=== PATIENT | male | born 1960 | race Caucasian/White ===

== ENCOUNTER → 2017-01-04 08:15 | Outpatient (CLI) | payer MEDICAID ==
[~2017-01-04 08:15] MED LIST: HYDROCODONE-APA1 TAB PO; TENORMIN50 MG PO; XANAX0.5 MG PO; ZYLOPRIM100 MG PO
[2017-02-20 06:18] VITALS: BMI 47.6
== END | disposition home or self-care (01) ==
LOC: D.NM 08:15
DX: R10.9 Unspecified abdominal pain (principal)

== ENCOUNTER → 2017-01-23 11:52 | Outpatient (CLI) | payer MEDICAID ==
[2017-01-23 12:36] LABS: BASOPHILS 0.5 % (0-2); EOSINOPHILS 3.6 % (0-7); HEMATOCRIT 42.8 % (42.0-54.0); HEMOGLOBIN 14.5 g/dL (13.5-17.5); IMMATURE GRANULOCYTES 0.2 % (0-5); LYMPHOCYTES 20.9 % (15-50); MCH 34.4 pg (26.0-34.0); MCHC 33.9 g/dL (31.0-37.0); MCV 101.7 fL (80.0-100.0); MONOCYTES 9.9 % (2-11); NEUTROPHILS 64.9 % (40-80); PLATELET COUNT 150 10x3/uL (130-400); RBC 4.21 10x6/uL (4.20-6.10); RDW 12.6 % (11.5-14.5); WBC 6.2 10x3/uL (4.8-10.8)
[2017-01-23 12:58] LABS: APTT 34.5 SECONDS (22.8-39.4); INR 1.22 (0.85-1.17); PROTIME 14.9 SECONDS (11.6-15.0)
[2017-01-23 13:06] LABS: % SATURATION 40 % (15-55); IRON 115 ug/dl (35-150); TOTAL IRON BIND CAPACITY 283 ug/dl (260-445); UNSAT IRON BIND CAPACITY 168 ug/dl (150-375)
[2017-01-23 13:22] LABS: ALBUMIN 3.5 g/dL (3.4-5.0); ALKALINE PHOSPHATASE 89 U/L (46-116); ALT (SGPT) 158 U/L (10-68); CALC OSMOLALITY 267 mosm/kg (275-300); CALCIUM 8.3 mg/dL (8.5-10.1); CARBON DIOXIDE 24.7 mmol/L (21.0-32.0); CHLORIDE - SERUM 101 mmol/L (98-107); CHOL - HDL RATIO 8.1 ratio (2.3-4.9); CHOLESTEROL, TOTAL 203 mg/dL (0-200); FERRITIN 974 ng/mL (3-244); GAMMA GT 243 U/L (5-85); GLUCOSE 101 mg/dL (74-106); HDL CHOLESTEROL 25 mg/dL (32-96); LDL CHOLESTEROL 146 mg/dL (0-100); LDL-HDL RATIO 5.8 ratio (1.5-3.5); POTASSIUM - SERUM 4.5 mmol/L (3.5-5.1); PROTEIN - SERUM 7.4 g/dL (6.4-8.2); SODIUM 135 mmol/L (136-145); TRIGLYCERIDE 161 mg/dL (30-200); UREA NITROGEN 8 mg/dL (7-18); eGFR NON AFRICAN AMERICAN 82 mL/min (90-120)
[2017-01-24 09:16] LABS: FOLATE (FOLIC ACID) - SERUM 11.7 ng/mL (>3.0); HAPTOGLOBIN 72 mg/dL (34-200)
[2017-01-24 11:20] LABS: ANA REFLEX - ANTICHROMATIN ABS <0.2 AI (0.0-0.9); ANA REFLEX - CENTROMERE B ABS <0.2 AI (0.0-0.9); ANA REFLEX - DBL STRANDED DNA <1 IU/mL (0-9); ANA REFLEX - DIRECT Positive (Negative); ANA REFLEX - JO-1 AB <0.2 AI (0.0-0.9); ANA REFLEX - RNP ANTIBODIES 3.6 AI (0.0-0.9); ANA REFLEX - SCL-70 <0.2 AI (0.0-0.9); ANA REFLEX - SJOGRENS AB SSA <0.2 AI (0.0-0.9); ANA REFLEX - SJOGRENS AB SSB <0.2 AI (0.0-0.9); ANA REFLEX - SMITH AB <0.2 AI (0.0-0.9)
[2017-01-24 13:14] LABS: HEPATITIS C ANTIBODY <0.1 (0.0-0.9)
[2017-01-25 14:22] LABS: MITOCHONDRIAL ANTIBODY 6.7 Units (0.0-20.0); SMOOTH MUSCLE ABS (ACTIN) 18 Units (0-19)
[2017-02-20 06:18] VITALS: BMI 47.6
== END | disposition home or self-care (01) ==
LOC: D.LAB 01-22 10:15
PROVIDERS: Internal Medicine Gastroenterology
DX: R79.89 Other specified abnormal findings of blood chemistry (principal); R16.1 Splenomegaly, not elsewhere classified; K76.0 Fatty (change of) liver, not elsewhere classified

== ENCOUNTER 2017-01-29 10:43 | Outpatient (CLI) | payer MEDICAID ==
[~2017-01-29] VITALS: Ht 170.2 cm; Wt 140.0 kg
--- NOTE | ~2017-01-29 | HEMODYNAMI ---
PATIENT:SOL DOSHI MEDICAL RECORD: [id number] : 58 LOCATION:[facility] ADMISSION DATE: 01/29/17 Generatedon:01/29/201713:22 Patient name: SOL DOSHI Patient #: [id number] : 1960 Date of study: 01/29/2017 Page: Of Hemodynamic Procedure Report Patient Data Patient Demographics Procedure consent was obtained First Name: SOL Gender: Male Last Name: GLENDA : 1960 Middle Initial: GWEN Age: 56 year(s) Patient #: [id number] Race: Unknown SSN: [id number] Additional ID: [id number] Contact details [address]: [address] [place] [address] State: [place] City: [place] Zip code: [address] Past Medical History Allergies Allergen Reaction Date Comments Reported Other allergy 01/29/2017 NSAIDS, ASA Admission Admission Data Admission Date: 01/29/2017 Admission Time: 10:43 Height (in.): 68 BSA: 2.44 (m2) Height (cm.): 172.72 BMI: 45.92 (kg/m2) Weight (lbs.): 302 Weight (kg.): 136.98 Lab Results Lab Result Date: 01/29/2017 Lab Result Time: 0:00 Biochemistry Name Units Result Min Max BUN mg/dl 11 --(-*--)-- 7 18 Creatinine mg/dl 1 --(--*-)-- 0.6 1.3 CBC Name Units Result Min Max Hemoglobin g/dl 15.3 --(-*--)-- 13.5 17.5 Procedure Procedure Types Cath Procedure Diagnostic Procedure Miscellaneous Procedures Moderate Sedation up to 15 minutes Peripheral Cath Diagnostic Procedure Cath Peripheral Xxbth-Enpfatx-Pgy-Off Procedure Description Procedure Date Procedure Date: 01/29/2017 Procedure Start Time: 13:06 Procedure End Time: 13:21 Procedure Staff Name Function Wing Vitale MD Performing Physician Angela Sena RT Monitor Francoise Hoffman RT Scrub Inna Chery RN Nurse Procedure Data Cath Procedure Fluoroscopy Diagnostic fluoroscopy Total fluoroscopy Time: 1.9 time: 1.9 min min Diagnostic fluoroscopy Total fluoroscopy dose: 590 dose: 590 mGy mGy Contrast Material Contrast Material Type Amount (ml) Isovue 300 96 Entry Location Entry Primary Successful Side Size Upsize Upsize Entry Closure Succes sful Closure Location (Fr) 1 (Fr) 2 (Fr) Remarks Device Remarks Femoral Right 5 Fr Exoseal artery Estimated blood loss: 10 ml Procedure Complications No complications Procedure Medications Medication Administration Route Dosage 0.9% NaCl I.V. 100 ml/hr Lidocaine 2% added to field 20 Heparin Flush Bag added to field 2 bags (1000units/500ml NS) Oxygen NC 2 l/min Fentanyl I.V. 50 mcg Versed I.V. 2 mg Fentanyl I.V. 50 mcg Versed I.V. 1 mg Versed I.V. 1 mg Fentanyl I.V. 50 mcg Fentanyl I.V. 50 mcg Versed I.V. 1 mg Hemodynamics Rest BSA: 2.44 (m2) O2 Consumption: Estimated: 331.84 (ml/min) O2 Consumption indexed : Estimated:136 (ml/min/m) Pre Cath Intra NCS Post Cath Vital Signs Time Heart Resp SPO2 etCO2 NIBP (mmHg) Rhythm Pain Sedation Rate (ipm) (%) (mmHg) Status Level (bpm) 12:49:07 63 24 98 0 174/93(137) NSR 0 (11) 10(A) , No pain 12:53:32 64 29 99 18.7 172/93(147) NSR 0 (11) 10(A) , No pain 12:57:52 62 17 99 22.4 158/90(130) NSR 0 (11) 10(A) , No pain 13:02:10 61 21 97 25.4 147/83(115) NSR 0 (11) 10(A) , No pain 13:06:28 62 16 98 20.2 140/86(124) NSR 0 (11) 9(A) , No pain 13:10:42 63 19 96 35.2 136/84(111) NSR 0 (11) 9(A) , No pain 13:15:02 63 16 97 0 148/81(125) NSR 0 (11) 10(A) , No pain 13:19:18 66 11 97 0 140/88(119) NSR 0 (11) 10(A) , No pain Medications Time Medication Route Dose Verified Delivered Reason Notes E ffectiveness by by 12:48:38 0.9% NaCl I.V. 100ml/hr Wing Inna used for Iam Chery RN procedure 12:49:01 Lidocaine 2% added 20ml Wing Wing for local to vial Iam Vitale MD anesthetic field 12:49:14 Heparin Flush added 2 bags Wing Wing used for Bag to Iam Vitale MD procedure (1000units/500ml field NS) 12:49:29 Oxygen NC 2 l/min Wing Inna Per Iam Chery RN physician 13:03:05 Fentanyl I.V. 50 mcg Wing Inna for Iam Chery RN sedation 13:03:18 Versed I.V. 2 mg Wing Inna for Iam Chery RN sedation 13:05:22 Fentanyl I.V. 50 mcg Wing Inna for Iam Chery RN sedation 13:05:36 Versed I.V. 1 mg Iwng Inna for Iam Chery RN sedation 13:09:26 Versed I.V. 1 mg Wing Inna for Iam Chery RN sedation 13:09:34 Fentanyl I.V. 50 mcg Wing Inna for Iam Chery RN sedation 13:11:58 Fentanyl I.V. 50 mcg Wing Inna for Iam Chery RN sedation 13:15:28 Versed I.V. 1 mg Wing Inna for Iam Chery RN sedation Procedure Log Time Note 12:29:52 Patient Height : 68 inches 12:29:59 Patient Weight : 302 lbs 12:32:38 Diagnostic Cath status Elective 12:32:41 Francoise Hoffman RT(R) sent for patient. Start room use. 12:32:43 Time tracking: Regular hours 12:32:48 Plan of Care:Hemodynamics will remain stable., Cardiac rhythm will remain stable., Comfort level will be maintained., Respiratory function will remain adequate., Patient/ family verbilizes understanding of procedure., Procedure tolerated without complication., Recovers from procedure without complications.. 12:44:27 Patient received from Pre/Post Procedure Room to [facility] 2 Alert and oriented. Nilsonred to table in Supine position. 12:44:28 Warm blankets applied, and dayana hugger turned on for patient comfort. 12:44:29 Correct patient and procedure confirmed by team. 12:44:30 Signed procedure consent form obtained from patient. 12:44:32 ECG and BP/O2 sat monitors applied to patient. 12:44:50 H&P Date Dictated: 01/23/2017 Within 30 days and on chart.. 12:44:52 Pre-procedure instructions explained to patient. 12:44:53 Family in waiting room. 12:44:56 Patient NPO since Midnight. 12:45:30 Patient allergic to Other allergyNSAIDS, ASA 12:45:34 Is the patient allergic to Iodine/contrast media? No. 12:45:42 Is patient on blood thinner?No 12:47:48 Vital chart was started 12:48:38 0.9% NaCl 100ml/hr I.V. was administered by Inna Chery RN; used for procedure; 12:49:01 Lidocaine 2% 20ml vial added to field was administered by Wing Vitale MD; for local anesthetic; 12:49:14 Heparin Flush Bag (1000units/500ml NS) 2 bags added to field was administered by Wing Vitale MD; used for procedure; 12:49:29 Oxygen 2 l/min NC was administered by Inna Chery RN; Per physician; 12:57:44 Patient diabetic? No. 12:57:51 Snore? Yes 12:57:53 Sleep apnea? Yes 12:58:00 Patient pain scale 0/10 ?. 12:58:14 IV patent on arrival in left forearm with 0.9% NaCl at O. 12:58:51 Lab Result : BUN 11 mg/dl 12:58:51 Lab Result : Hemoglobin 15.3 g/dl 12:58:51 Lab Result : Creatinine 1 mg/dl 12:58:56 Lab results completed and on chart. 12:59:01 Bilateral groins area was prepped with chlora-prep and draped in sterile fashion 12:59:02 Alarms reviewed by R. N. 12:59:03 Sharps counted by scrub and verified by R.N. 12:59:05 Physician paged 13:01:47 Physician arrived 13:01:48 --------ALL STOP TIME OUT------ 13:01:49 Final Timeout: patient, procedure, and site verified with staff and physician. All members of the team are in agreement. 13:01:51 Bilateral groins site verified by team. 13:01:56 Sedation plan: IV Moderate Sedation Medication:Versed, Fentanyl 13:03:05 Fentanyl 50 mcg I.V. was administered by Inna Chery RN; for sedation; 13:03:18 Versed 2 mg I.V. was administered by Inna Chery RN; for sedation; 13:04:28 Use device set Femoral Dx 13:04:29 ACIST Syringe (12138) opened to sterile field. 13:04:29 Bag Decanter (2002S) opened to sterile field. 13:04:30 Medline Cath Pack ([id number]) opened to sterile field. 13:04:30 SHEATH 5FR [place] (OXD135) opened to sterile field. 13:04:32 DIAGNOSTIC WIRE .035 260cm J wire (593504) opened to sterile field. 13:04:33 ACIST Hand Control (87120) opened to sterile field. 13:04:33 ACIST Manifold (74464) opened to sterile field. 13:04:34 DIAGNOSTIC Multipack 5Fr catheter set (ZP7279) opened to sterile field. 13:04:36 Tegaderm 4 x 4 (1626W) opened to sterile field. 13:04:37 PERCUTANEOUS ENTRY 19GA needle opened to sterile field. 13:04:59 Procedure started. 13:04:59 Full Disclosure recording started 13:05:22 Fentanyl 50 mcg I.V. was administered by Inna Chery RN; for sedation; 13:05:36 Versed 1 mg I.V. was administered by Inna Chery RN; for sedation; 13:06:04 Local anesthetic to right femoral artery with Lidocaine 2% by Wing Vitale MD.INITIAL ACCESS ONLY 13:07:11 A 5 Fr sheath was inserted into the Right Femoral artery 13:09:26 Versed 1 mg I.V. was administered by Inna Chery RN; for sedation; 13:09:34 Fentanyl 50 mcg I.V. was administered by Inna Chery RN; for sedation; 13:10:47 J wire advanced. 13:11:58 Fentanyl 50 mcg I.V. was administered by Inna Chery RN; for sedation; 13:12:23 UF catheter was inserted through the sheath 13:12:26 Abdominal angiogram w/ runoff was performed. 13:12:33 Left leg runoff performed. 13:12:35 Right leg runoff performed. 13:15:28 Versed 1 mg I.V. was administered by Inna Chery RN; for sedation; 13:18:50 Sheath removed intact; hemostasis achieved with Exoseal to the Right Femoral artery. 13:19:03 EXOSEAL 5Fr (EX500) opened to sterile field. 13:19:34 Procedure ended.(Physican Out) 13:19:47 Fluoroscopy time 01.90 minutes. 13:19:51 Fluoroscopy dose: 590 mGy 13:19:51 Flurop Dose total: 590 13:20:07 Contrast amount:Isovue 300 96ml. 13:20:10 Sharps counted by scrub and verified by R.N. 13:20:11 Insertion/operative site no bleeding no hematoma. 13:20:15 Post-op/insertion site Right Femoral artery dressed using a 4 x 4 and Tegaderm. 13:20:17 Post Procedure Pulses reassessed and unchanged 13:20:24 Post-procedure physical assessment completed. ASA score P 2 - A patient with mild systemic disease as per Wing Vitale MD. 13:20:28 Post procedure rhythm: unchanged. 13:20:30 Estimated blood loss: 10 ml 13:20:32 Post procedure instruction explained to patient.Patient verbalizes understanding. 13:20:48 Procedure and supply charges have been captured, reviewed, submitted and are correct. 13:21:40 Procedure Complication : No complications 13:21:43 Vital chart was stopped 13:21:43 See physician's report for complete and final results. 13:21:45 Report given to Pre/Post Procedure Room. 13:21:50 Patient transfered to Pre/Post Procedure Room with Stretcher. 13:21:53 Procedure ended. 13:21:53 Full Disclosure recording stopped 13:21:56 End room use (Document Last) Device Usage Item Name Manufacture Quantity Catalog Hospital Part Current Minimal Lot# / Number Charge Number Stock Stock Serial# Code ACIST Acist 1 29784 278444 243676 100617 20 [employer] (30691) Academic Earth Bag Decanter Microtek 1 2001 077728 73037 809641 5 (2002S) Medical Inc. Medline Cath Cardinal 1 [id number] 916299 82455 393825 5 Pack Health ([id number]) SHEATH 5FR Terumo 1 LBY843 289855 951854 309088 40 [place] (TEY595) DIAGNOSTIC [facility] 1 126559 646239 881395 345685 30 WIRE .035 260cm J wire (221448) ACIST Hand Acist 1 13470 400709 337132 560100 5 Control Medical (64651) Systems Inc ACIST Acist 1 38337 148388 258542 388312 5 Manifold Medical (44823) Systems Inc DIAGNOSTIC Cardinal 1 XN2110 173454 04572 487241 30 YouFig 5Fr catheter set (RT2756) Tegaderm 4 x 3M 1 1626W 740880 685874 964727 5 4 (1626W) PERCUTANEOUS Cook Medical 1 V07784 744814 504096 5 ENTRY 19GA needle EXOSEAL 5Fr Cardinal 1 EX500 725737 383749 621121 10 (EX500) Health Signature Audit [place] Stage Time Signature Unsigned Intra-Procedure 01/29/2017 Angela Sena 1:22:28 PM RT(R) Signatures Monitor : Angela Sena Signature : RT Date : Time : [address] [address]
[2017-01-29] MEDS ORDERED: ZYLOPRIM100 MG PO (11:05)
[2017-01-29] MEDS ORDERED: TENORMIN50 MG PO (11:05)
[2017-01-29] MEDS ORDERED: XANAX0.5 MG PO (11:06)
[2017-01-29 11:17] VITALS: BP 169/87; Ht 170.2 cm; Wt 140.0 kg
[2017-01-29 11:23] LABS: BASOPHILS 0.8 % (0-2); EOSINOPHILS 3.3 % (0-7); HEMOGLOBIN 15.3 g/dL (13.5-17.5); IMMATURE GRANULOCYTES 0.1 % (0-5); LYMPHOCYTES 24.9 % (15-50); MCH 34.7 pg (26.0-34.0); MEAN PLATELET VOLUME 10.4 fL (7.4-10.4); MONOCYTES 9.2 % (2-11); NEUTROPHILS 61.7 % (40-80); PLATELET COUNT 193 10x3/uL (130-400); RBC 4.41 10x6/uL (4.20-6.10); RDW 12.3 % (11.5-14.5); WBC 8.7 10x3/uL (4.8-10.8)
[2017-01-29 11:45] LABS: CALC OSMOLALITY 265 mosm/kg (275-300); CALCIUM 9.1 mg/dL (8.5-10.1); CARBON DIOXIDE 24.3 mmol/L (21.0-32.0); CHLORIDE - SERUM 101 mmol/L (98-107); GLUCOSE 112 mg/dL (74-106); POTASSIUM - SERUM 4.1 mmol/L (3.5-5.1); SODIUM 133 mmol/L (136-145); UREA NITROGEN 11 mg/dL (7-18); eGFR NON AFRICAN AMERICAN 82 mL/min (90-120)
--- NOTE | 2017-01-29 13:35 | NUR ---
1335 RECEIVED PT FROM [facility]AL[facility] TRAINER. PT IS DROWSY. RR EVEN AND UNLABORED./ DRESSING TO RIGHT GROIN IS CDI, AREA SOFT AND NONTENDER. PULSES PALPABLE. CAP REFILL IS BRISK. NSR, RATE IS 60.NO FAMILY AT BEDSIDE,. CALL LIGHT IS IN REACH. INSTRUCTED PT TO KEEP RIGHT LEG STRAIGHT AND STILL AND HEAD FLAT TO PILLOW AND VERBALIZES UNDERSTANDING.
--- NOTE | 2017-01-29 14:10 | NUR ---
DRESSING RIGHT GROIN IS CDI, AREA SOFT AND NONTENDER. PEDAL PULSES PALPABLE. PT DENIES ANY C/O. CALL LIGHT IN REACH, WILL CONTINUE TO MONITOR.
--- NOTE | 2017-01-29 14:31 | NUR ---
DRESSING RIGHT GROIN IS CDI, AREA IS SOFT AND NONTENDER. PEDAL PULSES PALPABLE. PT DENIES ANY C/O AT THIS TIME.
--- NOTE | 2017-01-29 15:00 | NUR ---
1500 HOB ELEVATED 45 DEGREES, DRESSING TO RIGHT GROIN IS CDI, AREA IS SOFT AND NONTENDER. PEDAL PULSES PALPABLE. PO FLUIDS SERVED. PT REFUSES SANDWICH. DENIES AND C/O AT THIS TIME. CALL LIGHT IN REACH.
--- NOTE | 2017-01-29 15:20 | NUR ---
1520 HOB HAS BEEN ELEVTED TO 90 DEGREES, DRESSING REMAINS STABLE. PEDAL PULSES PALPABLE. IV DC'D WITH CATH INTACT.
--- NOTE | 2017-01-29 16:01 | NUR ---
0773 PT HAS DRESSED FOR DC TO HOME. HAS AMBULATED TO THE BATHROOM AND VOIDED QS. DENIES ANY C/O. DC INSTRUCTIONS REVIEWED WITH PT WHO VERBALIZES UNDERSTANDING. PT ESCORTED TO PRIVATE AUTO VIA WC BY NURSE WITH FRIEND DRIVING HIM HOME.
== END 2017-01-29 15:35 | disposition home or self-care (01) ==
LOC: D.CATH 10:43
PROVIDERS: Internal Medicine Cardiovascular Disease
DX: I73.9 Peripheral vascular disease, unspecified (principal); Z01.812 Encounter for preprocedural laboratory examination

== ENCOUNTER 2017-02-20 05:09 | Day surgery (SDC) | payer MEDICAID ==
[2017-02-16 09:15] LABS: BASOPHILS 0.4 % (0-2); HEMATOCRIT 42.3 % (42.0-54.0); HEMOGLOBIN 14.6 g/dL (13.5-17.5); IMMATURE GRANULOCYTES 0.4 % (0-5); LYMPHOCYTES 19.9 % (15-50); MCH 35.4 pg (26.0-34.0); MCHC 34.5 g/dL (31.0-37.0); MCV 102.7 fL (80.0-100.0); MEAN PLATELET VOLUME 9.6 fL (7.4-10.4); MONOCYTES 6.5 % (2-11); NEUTROPHILS 69.8 % (40-80); PLATELET COUNT 120 10x3/uL (130-400); RBC 4.12 10x6/uL (4.20-6.10); RDW 12.5 % (11.5-14.5); WBC 5.7 10x3/uL (4.8-10.8)
[2017-02-16 09:23] LABS: CALC OSMOLALITY 274 mosm/kg (275-300); CALCIUM 8.5 mg/dL (8.5-10.1); CARBON DIOXIDE 25.9 mmol/L (21.0-32.0); CHLORIDE - SERUM 102 mmol/L (98-107); GLUCOSE 120 mg/dL (74-106); POTASSIUM - SERUM 4.2 mmol/L (3.5-5.1); SODIUM 137 mmol/L (136-145); UREA NITROGEN 12 mg/dL (7-18); eGFR NON AFRICAN AMERICAN 82 mL/min (90-120)
[~2017-02-20] VITALS: Ht 170.2 cm; Wt 137.4 kg
--- NOTE | ~2017-02-20 | OP ---
PATIENT NAME: SOL DOSHI MEDICAL RECORD: [id number] :58 LOCATION:[facility] ADMISSION DATE: SURGEON: MATT KURTZ MD DATE OF OPERATION: 02/20/2017 PREOPERATIVE DIAGNOSES: 1. Biliary dyskinesia. 2. Hepatomegaly. 3. Ventral hernia. 4. Splenomegaly. 5. Hypertension. 6. Pulmonary artery disease. 7. Gout. 8. Arthritis. 9. Morbid obesity with a BMI of 47. POSTOPERATIVE DIAGNOSES: 1. Biliary dyskinesia. 2. Hepatomegaly. 3. Ventral hernia. 4. Splenomegaly. 5. Hypertension. 6. Pulmonary artery disease. 7. Gout. 8. Arthritis. 9. Morbid obesity with a BMI of 47. PROCEDURE: 1. Laparoscopic cholecystectomy. 2. Laparoscopic liver biopsy. 3. Ventral hernia repair with 6.4 cm Proceed mesh. SURGEON: Matt Kurtz MD REPORT OF PROCEDURE: The patient's abdomen was prepped and draped in sterile fashion. A skin incision was made in the midline just above the umbilicus overlying a large ventral hernia. We used electrocautery to dissect through the subcutaneous tissue and into the hernia sac. Once inside, there was noted to be incarcerated omental tissue. The hernia defect was not very large, so eventually I was able to work my finger into the defect and extend the fascial opening superiorly about a centimeter or two. With this, I was able to reduce the omentum back into the abdominal cavity. The hernia sac was then removed all the way down to the fascial edges in all directions and then freed up the fascia above and below using electrocautery. The hernia defect was about 3 cm in greatest diameter. We then placed a pursestring around the hernia defect and inserted a 12-mm Marisa trocar. Under direct visualization, a 5 mm trocar was placed in the epigastrium and two 5-mm trocars were placed in the right subcostal region. The gallbladder was grasped and elevated and noted to have some inflammatory changes which appeared acute on chronic. Due to the large amount of fatty tissue within the abdomen, another 5-mm trocar was placed in the right lateral abdomen. Eventually, we were able to dissect out the cystic artery and cystic duct and these were clipped proximally and distally and ligated in standard fashion. The gallbladder was taken off the liver bed using electrocautery and placed into an Endo Catch bag. Wilner-Cut liver biopsy tool was inserted in the abdomen and multiple biopsies were taken of the right lobe of OPERATIVE REPORT [id number] SOL DOSHI the liver. The patient had a cobblestone pre-cirrhotic appearance. Any bleeding from these biopsy sites were then treated with electrocautery. We irrigated out the right upper quadrant and assured there was no sign of any bleeding or bile leakage. At this point, the ports and insufflation were then removed and the gallbladder was taken out through the umbilicus. The ventral hernia defect was repaired at this point. A 6.4 cm Proceed mesh was placed in an underlay fashion and sutured down on all sides using interrupted 0 Prolene. The fascia was then closed overlying this using interrupted #1 PDS. The wound was irrigated out thoroughly with normal saline. The subcutaneous tissues were reapproximated with interrupted 3-0 Vicryl and the skin incisions were all closed with subcutaneous 5-0 Monocryl. A total of 20 mL of 0.25% Marcaine plain was infused into the surrounding tissues. COMPLICATIONS: None. CONDITION: Stable. ANESTHESIA: General endotracheal and local. BLOOD LOSS: 100 mL. TRANSINT:[id number] Voice Confirmation ID: [id number] DOCUMENT ID: [id number] MATT KURTZ MD at 1542 CC: RACHAEL HUNTER DO [id number] DICTATION DATE: 02/20/17 1011 WOOD SAWYER: 02/20/17 1039 [facility] [address] [place] [place] [id number]
[~2017-02-20 05:09] MED LIST changes: -HYDROCODONE-APA1 TAB PO
[2017-02-20 06:18] VITALS: BP 154/84; Ht 170.2 cm; Wt 137.4 kg
[2017-02-20] MEDS ORDERED: HYDROCODONE-APA1 TAB PO (10:01)
== END 2017-02-20 17:05 | disposition home or self-care (01) ==
LOC: D.OPS 05:09 → D.PAN 08:00 → D.OPS 17:05
PROVIDERS: Surgery
DX: K82.8 Other specified diseases of gallbladder (principal); R16.2 Hepatomegaly with splenomegaly, not elsewhere classified; K43.6 Other and unspecified ventral hernia with obstruction, without gangrene; I10 Essential (primary) hypertension; I27.0 Primary pulmonary hypertension; M10.9 Gout, unspecified; M19.90 Unspecified osteoarthritis, unspecified site; E66.01 Morbid (severe) obesity due to excess calories; Z68.42 Body mass index [BMI] 45.0-49.9, adult; Z01.812 Encounter for preprocedural laboratory examination

== ENCOUNTER 2017-02-28 06:17 | Emergency (ER) | payer MEDICAID ==
[2017-02-20 06:18] VITALS: BMI 47.6
[~2017-02-28 06:17] MED LIST changes: +HYDROCODONE-APA1 TAB PO
[2017-02-28 07:40] LABS: BASOPHILS 0.8 % (0-2); EOSINOPHILS 2.8 % (0-7); IMMATURE GRANULOCYTES 0.3 % (0-5); LYMPHOCYTES 17.5 % (15-50); MCH 35.3 pg (26.0-34.0); MCHC 34.2 g/dL (31.0-37.0); MCV 103.3 fL (80.0-100.0); MEAN PLATELET VOLUME 10.2 fL (7.4-10.4); MONOCYTES 9.5 % (2-11); NEUTROPHILS 69.1 % (40-80); RBC 3.68 10x6/uL (4.20-6.10); RDW 12.4 % (11.5-14.5); WBC 6.5 10x3/uL (4.8-10.8)
[2017-02-28 07:53] LABS: PLATELET COUNT 214 10x3/uL (130-400)
[2017-02-28 07:59] LABS: ALKALINE PHOSPHATASE 66 U/L (46-116); ALT (SGPT) 112 U/L (10-68); BILIRUBIN - TOTAL 0.77 mg/dL (0.2-1.3); CALC OSMOLALITY 267 mosm/kg (275-300); CALCIUM 8.4 mg/dL (8.5-10.1); CARBON DIOXIDE 23.8 mmol/L (21.0-32.0); CHLORIDE - SERUM 101 mmol/L (98-107); GLUCOSE 115 mg/dL (74-106); POTASSIUM - SERUM 4.1 mmol/L (3.5-5.1); PROTEIN - SERUM 6.9 g/dL (6.4-8.2); SODIUM 134 mmol/L (136-145); UREA NITROGEN 11 mg/dL (7-18); eGFR NON AFRICAN AMERICAN 82 mL/min (90-120)
== END 2017-02-28 15:54 | disposition home or self-care (01) ==
LOC: D.ER 06:17
PROVIDERS: Emergency Medicine
DX: L02.211 Cutaneous abscess of abdominal wall (principal); I10 Essential (primary) hypertension

== ENCOUNTER → 2017-06-20 07:21 | Outpatient (CLI) | payer MEDICAID ==
[2017-02-20 06:18] VITALS: BMI 47.6
[2017-06-20 08:20] LABS: ALBUMIN 3.7 g/dL (3.4-5.0); BILIRUBIN - DIRECT 0.14 mg/dL (0.00-0.30); BILIRUBIN - INDIRECT 0.22 mg/dL (0.00-1.00); BILIRUBIN - TOTAL 0.36 mg/dL (0.2-1.3); PROTEIN - SERUM 7.2 g/dL (6.4-8.2)
== END | disposition home or self-care (01) ==
LOC: D.US 06-13 10:00 → D.LAB 06-13 10:00 → D.US 07:21
PROVIDERS: Internal Medicine Gastroenterology
DX: R79.89 Other specified abnormal findings of blood chemistry (principal); K76.0 Fatty (change of) liver, not elsewhere classified

== ENCOUNTER → 2017-08-30 08:14 | Outpatient (CLI) | payer MEDICAID ==
[2017-02-20 06:18] VITALS: BMI 47.6
[~2017-08-30 08:14] MED LIST changes: +ATIVAN0.5 MG PO; +BACTRIM DS TABL1 TAB PO; +COZAAR50 MG PO; +PLAQUENIL200 MG PO
== END | disposition home or self-care (01) ==
LOC: D.CT 08:14
DX: R10.12 Left upper quadrant pain (principal)

== ENCOUNTER → 2017-10-08 10:43 | Outpatient (CLI) | payer MEDICAID ==
[~2017-10-08] VITALS: Ht 170.2 cm; Wt 118.2 kg
--- NOTE | ~2017-10-08 | HEMODYNAMI ---
PATIENT:SOL DOSHI MEDICAL RECORD: [id number] : 58 LOCATION:D.CAT ADMISSION DATE: 10/08/17 Generatedon:10/08/201713:37 Patient name: SOL DOSHI Patient #: [id number] : 1960 Date of study: 10/08/2017 Page: Of Hemodynamic Procedure Report Patient Data Patient Demographics Procedure consent was obtained First Name: SOL Gender: Male Last Name: GLENDA : 1960 [facility] Initial: GWEN Age: 56 year(s) Patient #: [id number] Race: Unknown SSN: [id number] Additional ID: [id number] Contact details Address: [address] [place] [address] State: [place] City: [facility] [place] Zip code: [address] Past Medical History Allergies Allergen Reaction Date Comments Reported Other allergy 01/29/2017 NSAIDS, ASA Other allergy 10/08/2017 oysters, NSAIDS, ASPIRIN Admission Admission Data Admission Date: 10/08/2017 Admission Time: 10:43 Lab Results Lab Result Date: 10/08/2017 Lab Result Time: 11:15 Biochemistry Name Units Result Min Max BUN mg/dl 16 --(---*)-- 7 18 Creatinine mg/dl 1 --(--*-)-- 0.6 1.3 CBC Name Units Result Min Max Hematocrit % 42.5 --(*---)-- 42 54 Hemoglobin g/dl 14.8 --(-*--)-- 13.5 17.5 Procedure Procedure Types Cath Procedure Diagnostic Procedure LHC LHC w/Coronaries Sedation Charges Moderate Sedation up to 15 minutes Procedure Description Procedure Date Procedure Date: 10/08/2017 Procedure Start Time: 13:19 Procedure End Time: 13:37 Procedure Staff Name Function Wing Vitale MD Performing Physician Debra Pugh RT Monitor Magaly Ceja RN Nurse Randy Rose RT Scrub Procedure Data Cath Procedure Fluoroscopy Diagnostic fluoroscopy Total fluoroscopy Time: 3 time: 3 min min Diagnostic fluoroscopy Total fluoroscopy dose: 959 dose: 959 mGy mGy Contrast Material Contrast Material Type Amount (ml) Isovue 300 77 Entry Location Entry Primary Successful Side Size Upsize Upsize Entry Closure Ernandez ccessful Closure Location (Fr) 1 (Fr) 2 (Fr) Remarks Device Remarks Radial Right 6 Fr Mechanical artery Short Compression Estimated blood loss: 5 ml Diagnostic catheters Device Type Used For End Catheter Placement DIAGNOSTIC Chuckie 110cm LV Angiography 5Fr catheter ([id number]) DIAGNOSTIC Chuckie 110cm Right Coronary 5Fr catheter ([id number]) Angiography DIAGNOSTIC [place] 110cm 5 Left Coronary Fr catheter ([id number]) Angiography Procedure Complications No complications Procedure Medications Medication Administration Route Dosage Oxygen etCO2 Nasal cannula 2 l/min Lidocaine 2% added to field 20 Heparin Flush Bag added to field 2 bags (1000units/500ml NS) 0.9% NaCl I.V. 100 ml/hr Versed I.V. 1 mg Fentanyl I.V. 50 mcg Versed I.V. 1 mg Fentanyl I.V. 50 mcg Versed I.V. 1 mg Fentanyl I.V. 50 mcg Fentanyl I.V. 100 mcg Radial Cocktail I.A. 1 syringe (Verapomil 2mg/Nitro 400mcg/Heparin 1500units) Versed I.V. 1 mg Versed I.V. 0.5 mg Hemodynamics Rest Heart Rate: 55 (bpm) Pressure Samples Time Site Value (mmHg) Purpose Heart Use Rate(bpm) 13:27 LV 128/4,19 EDP 63 13:28 AO 108/67(78) Snapshot 62 Gradients Valve Time Site Site Mean SEP/DFP Peak To Heart Use 1 2 (mmHg) (sec/min) Peak Rate (mmHg) (bpm) Aortic 13:28 LV AO 76 Snapshots Pre Cath Intra NCS Post Cath Vital Signs Time Heart Resp SPO2 etCO2 NIBP (mmHg) Rhythm Pain Sedation Rate (ipm) (%) (mmHg) Status Level (bpm) 13:21:04 58 18 95 32.8 135/64(109) NSR 0 (11) 10(A) , No pain 13:25:24 60 16 92 0 125/52(79) NSR 0 (11) 10(A) , No pain 13:29:53 61 14 94 35.8 121/37(73) NSR 0 (11) 9(A) , No pain 13:34:13 63 19 95 41 118/58(93) NSR 0 (11) 9(A) , No pain 13:36:57 66 10 95 35 107/57(88) NSR 0 (11) 10(A) , No pain Medications Time Medication Route Dose Verified Delivered Reason Notes Effectiveness by by 13:02:55 Oxygen etCO2 2 l/min Wing Buffie used for Nasal Iam Ceja RN procedure cannula 13:03:02 Lidocaine 2% added 20ml Wing Wing for local to vial Iam Vitale MD anesthetic field 13:03:08 Heparin Flush added 2 bags Wing Wing used for Bag to Iam Vitale MD procedure (1000units/500ml field NS) 13:03:15 0.9% NaCl I.V. 100 Wing Buffie Per ml/hr Iam Ceja RN physician 13:08:06 Versed I.V. 1 mg Wing Buffie for sedation Iam Ceja RN 13:08:13 Fentanyl I.V. 50 mcg Wing Buffie for sedation Iam Ceja RN 13:12:33 Versed I.V. 1 mg Wing Buffie for sedation Iam Ceja RN 13:12:36 Fentanyl I.V. 50 mcg Wing Buffie for sedation Iam Ceja RN 13:19:59 Versed I.V. 1 mg Wing Buffie for sedation Iam Ceja RN 13:20:05 Fentanyl I.V. 50 mcg Wing Buffie for sedation Iam Ceja RN 13:23:23 Fentanyl I.V. 100 mcg Wing Buffie for sedation Iam Ceja RN 13:27:09 Radial Cocktail I.A. 1 Wing Wing for (Verapomil syringe Iam Vitale MD vasodilation 2mg/Nitro 400mcg/Heparin 1500units) 13:27:39 Versed I.V. 1 mg Wing Wing for sedation Iam Vitale MD 13:31:13 Versed I.V. 0.5 mg Wing Wing for sedation Iam Vitale MD Procedure Log Time Note 12:37:35 Magaly Ceja RN sent for patient. Start room use. 12:37:56 Time tracking: Regular hours (M-F 7:00 - 5:00) 12:38:00 Plan of Care:Hemodynamics will remain stable., Cardiac rhythm will remain stable., Comfort level will be maintained., Respiratory function will remain adequate., Patient/ family verbilizes understanding of procedure., Procedure tolerated without complication., Recovers from procedure without complications.. 12:50:45 Lab Result : BUN 16 mg/dl 12:50:45 Lab Result : Creatinine 1 mg/dl 12:50:45 Lab Result : Hemoglobin 14.8 g/dl 12:50:45 Lab Result : Hematocrit 42.5 % 12:50:48 Lab results completed and on chart. 12:52:12 Patient allergic to Other allergyoysters, NSAIDS, ASPIRIN 12:52:25 Patient received from Pre/Post Procedure Room to CCL 2 Alert and oriented. Tansferred to table in Supine position. 12:52:30 Warm blankets applied, and dayana hugger turned on for patient comfort. 12:52:31 Correct patient and procedure confirmed by team. 12:52:33 Signed procedure consent form obtained from patient. 12:52:34 ECG and BP/O2 sat monitors applied to patient. 12:52:46 H&P Date Dictated: 09/12/2017 Within 30 days and on chart., H&P Addendum completed by physician on day of procedure. (MUST COMPLETE FOR ALL OUTPATIENTS). 12:52:53 Pre-procedure instructions explained to patient. 12:52:53 Pre-op teaching completed and patient verbalized understanding. 12:52:54 Family in waiting room. 12:52:55 Patient NPO since Midnight. 12:56:36 Is the patient allergic to Iodine/contrast media? No. 12:56:40 Is patient on blood thinner?No 12:57:33 Patient diabetic? No. 12:57:49 Previous problem with sedation/anesthesia? No ? 12:57:51 Snore? Yes 12:57:52 Sleep apnea? No 12:57:52 Deviated septum? No 12:57:53 Opens mouth fully? Yes 12:57:54 Sticks out tongue? Yes 12:57:56 Airway obstruction? No ? 12:57:58 Dentures? No ? 12:58:05 Pre procedure: right dorsailis pedis pulse 2+ Normal; easily identifiable; not easily obliterated 12:58:09 Modified Mic's test Ulnar < 7 seconds 12:58:11 Patient pain scale 0/10 ?. 12:58:22 IV patent on arrival in left forearm with 0.9% NaCl at [facility]. 12:58:29 Right Radial & Right Groin area was prepped with chlora-prep and draped in sterile fashion 12:58:30 Alarms reviewed by R. N. 12:58:30 Sharps counted by scrub and verified by R.N. 12:58:33 Use device set Radial Dx or PCI 12:58:34 ACIST Syringe (16354) opened to sterile field. 12:58:35 Medline Cath Pack ([id number]) opened to sterile field. 12:58:35 Bag Decanter (2002S) opened to sterile field. 12:58:35 DIAGNOSTIC WIRE .035 260cm J wire (892484) opened to sterile field. 12:58:36 ACIST Hand Control (05023) opened to sterile field. 12:58:36 ACIST Manifold (03502) opened to sterile field. 12:58:38 MBrace Wrist Support ([id number]) opened to sterile field. 12:58:39 SHEATH 6Fr Prelude Radial ([id number]) opened to sterile field. 13:02:55 Oxygen 2 l/min etCO2 Nasal cannula was administered by Magaly Ceja RN; used for procedure; 13:03:02 Lidocaine 2% 20ml vial added to field was administered by Wing Vitale MD; for local anesthetic; 13:03:08 Heparin Flush Bag (1000units/500ml NS) 2 bags added to field was administered by Wing Vitale MD; used for procedure; 13:03:15 0.9% NaCl 100 ml/hr I.V. was administered by Magaly Ceja RN; Per physician; 13:06:09 Final Timeout: patient, procedure, and site verified with staff and physician. All members of the team are in agreement. 13:06:11 Right Radial & Right Groin site verified by team. 13:06:14 Physical assessment completed. ASA score P 2 - A patient with mild systemic disease as per Wing Vitale MD. 13:06:18 Sedation plan: IV Moderate Sedation Medication:Versed, Fentanyl 13:06:39 Baseline sample Acquired. 13:08:06 Versed 1 mg I.V. was administered by Magaly Ceja RN; for sedation; 13:08:13 Fentanyl 50 mcg I.V. was administered by Magaly Ceja RN; for sedation; 13:12:33 Versed 1 mg I.V. was administered by Magaly Ceja RN; for sedation; 13:12:36 Fentanyl 50 mcg I.V. was administered by Magaly Ceja RN; for sedation; 13:18:42 Procedure started. 13:18:42 Full Disclosure recording started 13:19:23 Local anesthetic to right radial artery with Lidocaine 2% by Wing Vitale MD.INITIAL ACCESS ONLY 13:19:51 Vital chart was started 13:19:59 Versed 1 mg I.V. was administered by Magaly Ceja RN; for sedation; 13:20:05 Fentanyl 50 mcg I.V. was administered by Magaly Ceja RN; for sedation; 13:23:23 Fentanyl 100 mcg I.V. was administered by Magaly Ceja RN; for sedation; 13:26:02 A 6 Fr Short sheath was inserted into the Right Radial artery 13:26:24 A DIAGNOSTIC Chuckie 110cm 5Fr catheter ([id number]) was advanced over the wire and used for LV Angiography. 13:27:09 Radial Cocktail (Verapomil 2mg/Nitro 400mcg/Heparin 1500units) 1 syringe I.A. was administered by Wing Vitale MD; for vasodilation; 13:27:28 LV gram done using COLLINS 13::37 Injector settings: Ml/sec: 5, Volume: 15, 13:27:39 Versed 1 mg I.V. was administered by Wing Vitale MD; for sedation; 13:27:43 LV hemodynamics recorded. 13:27:50 EF : 60 % 13:28:12 A DIAGNOSTIC Chuckie 110cm 5Fr catheter ([id number]) was advanced over the wire and used for Right Coronary Angiography. 13:30:08 Catheter removed. 13:30:43 A DIAGNOSTIC [place] 110cm 5 Fr catheter ([id number]) was advanced over the wire and used for Left Coronary Angiography. 13:31:13 Versed 0.5 mg I.V. was administered by Wing Vitale MD; for sedation; 13:33:20 Catheter removed. 13:33:41 Sheath removed intact; hemostasis achieved with Mechanical Compression to the Right Radial artery. 13:33:43 Procedure ended.(Physican Out) 13:33:47 TR BAND Standard ([id number]) opened to sterile field. 13:33:53 Fluoroscopy time 03.00 minutes. 13:33:57 Fluoroscopy dose: 959 mGy 13:33:57 Flurop Dose total: 959 13:34:10 Contrast amount:Isovue 300 77ml. 13:34:12 Sharps counted by scrub and verified by R.N. 13:34:15 TR band inflated with 12cc of air. 13:34:16 Insertion/operative site no bleeding no hematoma. 13:34:22 Post right radial artery:stable, clean and dry 13:34:23 Post Procedure Pulses reassessed and unchanged 13:34:25 Post-procedure physical assessment completed. ASA score P 2 - A patient with mild systemic disease as per Wing Vitale MD. 13:34:28 Post procedure rhythm: unchanged. 13:34:49 Estimated blood loss: 5 ml 13:34:50 Post procedure instruction explained to patient.Patient verbalizes understanding. 13:34:50 Patient needs reinforcement of post procedure teaching. 13:35:18 Procedure type changed to Cath procedure, Diagnostic procedure, LHC, LHC w/Coronaries, Sedation Charges, Moderate Sedation up to 15 minutes 13:35:23 Procedure Complication : No complications 13:35:26 See physician's report for complete and final results. 13:36:47 Vital chart was stopped 13:36:49 Procedure and supply charges have been captured, reviewed, submitted and are correct. 13:36:51 Report given to Pre/Post Procedure Room. 13:36:54 Patient transfered to Pre/Post Procedure Room with Stretcher. 13:37:01 Procedure ended. 13:37:01 Full Disclosure recording stopped 13:37:05 End room use (Document Last) Device Usage Item Name Manufacture Quantity Catalog Number Hospital Part Current M inimal Lot# / Charge Number Stock Stock Serial# Code ACIST Syringe Acist 1 33809 248492 [id number] [id number] 2 0 (73658) [employer] Medline Cath Cardinal 1 [id number] 560350 91884 274407 5 [employer] ([id number]) Bag Decanter Microtek 1 423017 86147 624769 5 () Medical Inc. DIAGNOSTIC WIRE [facility] 1 941535 200423 472346 504900 3 0 .035 260cm J wire (583160) ACIST Hand Acist 1 30289 857309 896781 962628 5 Control (97901) [employer] ACIST Manifold Acist 1 65201 536052 996309 966001 5 (53336) [employer] MBrace Wrist Advanced 1 140-0250-00 946195 90340 196175 5 Support Vascular ([id number]) Dynamics SHEATH 6Fr Merit 1 [id number] 756321 013096 905830 5 Prelude Radial Medical ([id number]) DIAGNOSTIC Terumo 1 40-5023 876819 826158 548609 5 Chuckie 110cm 5Fr catheter (028158) DIAGNOSTIC Terumo 1 40-5013 754378 400336 480025 5 [place] 110cm 5 Fr catheter (685242) TR BAND Terumo 1 [id number] 590437 766374 030639 4 0 Standard ([id number]) Signature Audit [place] Stage Time Signature Unsigned Intra-Procedure 10/08/2017 Debra 1:37:19 PM Counts RT(R) Signatures Monitor : Debra Signature : Counts RT Date : Time : [place] [address] [place] [address]
[2017-10-08 11:17] VITALS: BP 156/72; Ht 170.2 cm; Wt 118.2 kg
[2017-10-08 11:32] LABS: BASOPHILS 0.1 % (0-2); EOSINOPHILS 0.6 % (0-7); HEMATOCRIT 42.5 % (42.0-54.0); HEMOGLOBIN 14.8 g/dL (13.5-17.5); IMMATURE GRANULOCYTES 0.4 % (0-5); LYMPHOCYTES 13.9 % (15-50); MCH 33.6 pg (26.0-34.0); MCHC 34.8 g/dL (31.0-37.0); MCV 96.4 fL (80.0-100.0); MEAN PLATELET VOLUME 10.9 fL (7.4-10.4); RBC 4.41 10x6/uL (4.20-6.10); RDW 12.6 % (11.5-14.5); WBC 7.7 10x3/uL (4.8-10.8)
[2017-10-08 11:35] LABS: CALC OSMOLALITY 277 mosm/kg (275-300); CALCIUM 8.6 mg/dL (8.5-10.1); CARBON DIOXIDE 23.6 mmol/L (21.0-32.0); CHLORIDE - SERUM 104 mmol/L (98-107); GLUCOSE 123 mg/dL (74-106); POTASSIUM - SERUM 4.4 mmol/L (3.5-5.1); SODIUM 138 mmol/L (136-145); UREA NITROGEN 16 mg/dL (7-18); eGFR NON AFRICAN AMERICAN 82 mL/min (90-120)
[2017-10-08 11:39] LABS: PLATELET COUNT 133 10x3/uL (130-400)
== END | disposition home or self-care (01) ==
LOC: D.CATH 10:43
PROVIDERS: Internal Medicine Cardiovascular Disease
DX: I20.9 Angina pectoris, unspecified (principal)

== ENCOUNTER 2017-10-23 06:37 | Emergency (ER) | payer MEDICAID ==
[~2017-10-23] VITALS: Ht 170.2 cm; Wt 115.9 kg
[~2017-10-23 06:37] MED LIST changes: -ATIVAN0.5 MG PO; -BACTRIM DS TABL1 TAB PO; -COZAAR50 MG PO; -PLAQUENIL200 MG PO
[2017-10-23 06:40] VITALS: BP 135/60; Ht 170.2 cm; Wt 115.9 kg
[2017-10-23] MEDS ORDERED: ATIVAN0.5 MG PO (06:43)
[2017-10-23] MEDS ORDERED: COZAAR50 MG PO (06:44)
[2017-10-23] MEDS ORDERED: PLAQUENIL200 MG PO (06:44)
[2017-10-23] MEDS ORDERED: BACTRIM DS TABL1 TAB PO (07:12)
== END 2017-10-23 07:36 | disposition home or self-care (01) ==
LOC: D.ER 06:37
DX: L02.213 Cutaneous abscess of chest wall (principal); I10 Essential (primary) hypertension; A77.0 Spotted fever due to Rickettsia rickettsii

== ENCOUNTER → 2017-12-17 07:59 | Outpatient (CLI) | payer MEDICAID ==
[2017-10-23 06:40] VITALS: BMI 40.0
[~2017-12-17 07:59] MED LIST changes: +ATIVAN0.5 MG PO; +BACTRIM DS TABL1 TAB PO; +COZAAR50 MG PO; +PLAQUENIL200 MG PO
[2017-12-17 08:54] LABS: ALBUMIN 3.7 g/dL (3.4-5.0); BILIRUBIN - DIRECT 0.1 mg/dL (0.00-0.30); BILIRUBIN - INDIRECT 0.19 mg/dL (0.00-1.00); BILIRUBIN - TOTAL 0.29 mg/dL (0.2-1.3); PROTEIN - SERUM 7.5 g/dL (6.4-8.2)
== END | disposition home or self-care (01) ==
LOC: D.US 12-13 08:30
PROVIDERS: Internal Medicine Gastroenterology
DX: K76.0 Fatty (change of) liver, not elsewhere classified (principal)

== ENCOUNTER → 2018-03-22 13:26 | Outpatient (CLI) | payer MEDICAID ==
[2017-10-23 06:40] VITALS: BMI 40.0
== END | disposition home or self-care (01) ==
LOC: D.CT 13:26
DX: J32.9 Chronic sinusitis, unspecified (principal)

== ENCOUNTER → 2018-06-13 08:07 | Outpatient (CLI) | payer MEDICAID ==
[2017-10-23 06:40] VITALS: BMI 40.0
[2018-06-13 09:28] LABS: ALBUMIN 3.8 g/dL (3.4-5.0); BILIRUBIN - DIRECT 0.15 mg/dL (0.00-0.30); BILIRUBIN - INDIRECT 0.32 mg/dL (0.00-1.00); BILIRUBIN - TOTAL 0.47 mg/dL (0.2-1.3); PROTEIN - SERUM 7.4 g/dL (6.4-8.2)
== END | disposition home or self-care (01) ==
LOC: D.US 08:07
PROVIDERS: ATTEND Internal Medicine Gastroenterology
DX: K76.0 Fatty (change of) liver, not elsewhere classified (principal)

== ENCOUNTER → 2018-06-19 10:17 | Outpatient (CLI) | payer MEDICAID ==
[2017-10-23 06:40] VITALS: BMI 40.0
== END | disposition home or self-care (01) ==
LOC: D.RAD 10:17
PROVIDERS: ATTEND Family Medicine
DX: M54.2 Cervicalgia (principal)

== ENCOUNTER 2018-07-05 21:12 | Emergency (ER) | payer MEDICAID ==
[~2018-07-05] VITALS: Ht 170.2 cm; Wt 122.7 kg
[2018-07-05 21:16] VITALS: Ht 170.2 cm; Wt 122.7 kg
[2018-07-05 22:42] VITALS: BP 141/78
== END 2018-07-05 22:42 | disposition home or self-care (01) ==
LOC: D.ER 21:12
DX: R55 Syncope and collapse (principal)

== ENCOUNTER 2018-07-26 14:08 | Emergency (ER) | payer MEDICAID ==
[2018-07-26 14:24] VITALS: BP 121/70; BMI 40.8
== END 2018-07-26 17:22 | disposition home or self-care (01) ==
LOC: D.ER 14:08
DX: R42 Dizziness and giddiness (principal); I10 Essential (primary) hypertension

== ENCOUNTER → 2018-12-13 12:50 | Outpatient (CLI) | payer MEDICAID ==
[2018-12-13 13:48] LABS: BILIRUBIN - DIRECT 0.1 mg/dL (0.00-0.30); BILIRUBIN - INDIRECT 0.17 mg/dL (0.00-1.00); BILIRUBIN - TOTAL 0.27 mg/dL (0.2-1.3); PROTEIN - SERUM 6.7 g/dL (6.4-8.2)
== END | disposition home or self-care (01) ==
LOC: D.US 09:00
PROVIDERS: ATTEND Internal Medicine Gastroenterology
DX: K76.0 Fatty (change of) liver, not elsewhere classified (principal)

== ENCOUNTER → 2019-08-26 08:10 | Outpatient (CLI) | payer MEDICAID ==
[2019-08-26 08:57] LABS: ALBUMIN 3.7 g/dL (3.4-5.0); BILIRUBIN - DIRECT 0.08 mg/dL (0.00-0.30); BILIRUBIN - INDIRECT 0.13 mg/dL (0.00-1.00); BILIRUBIN - TOTAL 0.21 mg/dL (0.2-1.3); PROTEIN - SERUM 6.7 g/dL (6.4-8.2)
== END | disposition home or self-care (01) ==
LOC: D.US 08:00
PROVIDERS: ATTEND Internal Medicine Gastroenterology
DX: K76.0 Fatty (change of) liver, not elsewhere classified (principal)